=== PATIENT | male | born 1980 | race Caucasian/White ===

== ENCOUNTER → 2016-10-14 | Outpatient (CLI) | payer SELFPAY ==
[~2016-10-14] MED LIST: CEPH-507 PO; HYDR-3875 PO
--- NOTE | 2016-10-14 19:20 | Diagnostic Imaging Report ---
EXAMINATION: Left hand, three views. COMPARISON: None. HISTORY: A 36-year-old male, left hand pain. FINDINGS: There is a displaced obliquely oriented fracture involving the second proximal phalanx. The distal fracture fragment is displaced radially by approximately 4 mm. There is no fracture involvement of the articulating surface. There is no radiopaque foreign body. IMPRESSION: 1. Displaced obliquely oriented fracture of the second proximal phalanx without intra-articular extension. Dictated by: Dictated on workstation # [id number]
== END ==
LOC: RAD 18:23
PROVIDERS: ATTEND Nurse Practitioner Family
DX: S62.611A Displaced fracture of proximal phalanx of left index finger, initial encounter for closed fracture (principal); X58.XXXA Exposure to other specified factors, initial encounter; Y99.8 Other external cause status
CPT/HCPCS: 73130

== ENCOUNTER → 2021-08-28 | Outpatient (CLI) | payer OTHER ==
--- NOTE | 2021-08-28 13:04 | Diagnostic Imaging Report ---
PROCEDURE: US Hepatic (Liver). TECHNIQUE: Multiple real-time grayscale images were obtained over the right upper quadrant in various projections. INDICATION: Alpha 1 antitrypsin deficiency. Liver is upper limits of normal in size at 16.9 cm. The portal vein is patent and shows normal direction of flow. No discrete liver mass is detected. The gallbladder is unremarkable. No gallstones or sludge are seen. There is no wall thickening or biliary duct dilatation. Pancreas unremarkable. Aorta is nonaneurysmal. IVC is patent. Right kidney is without calculi or hydronephrosis. There is no ascites. IMPRESSION: Unremarkable right upper quadrant ultrasound. Dictated by: Dictated on workstation # [id number]
== END ==
PROVIDERS: ATTEND Internal Medicine Critical Care Medicine
DX: E88.01 Alpha-1-antitrypsin deficiency (principal)
CPT/HCPCS: 76705

== ENCOUNTER → 2021-09-28 | Outpatient (CLI) | payer OTHER | LOC: LAB 11:56 | PROVIDERS: ATTEND Internal Medicine Critical Care Medicine | DX: E88.01 Alpha-1-antitrypsin deficiency (principal) | CPT/HCPCS: 36415; 82103 ==

== ENCOUNTER → 2021-10-03 | Outpatient (CLI) | payer OTHER | LOC: LAB 14:00 | DX: E88.01 Alpha-1-antitrypsin deficiency (principal); J45.50 Severe persistent asthma, uncomplicated; Z87.891 Personal history of nicotine dependence | CPT/HCPCS: 36415; 80323 ==

== ENCOUNTER → 2022-10-03 | Outpatient (CLI) | payer OTHER ==
[2022-10-03 13:33] LABS: ALBUMIN 4.1 GM/DL (3.2-4.5)
[2022-10-03 13:35] LABS: TOTAL PROTEIN 6.8 GM/DL (6.4-8.2)
[2022-10-03 13:37] LABS: BILIRUBIN,TOTAL 0.7 MG/DL (0.1-1.0)
[2022-10-03 13:41] LABS: BILIRUBIN,DIRECT 0.3 MG/DL (0.0-0.3); BILIRUBIN,INDIRECT 0.4 MG/DL
== END ==
LOC: LAB 12:52
PROVIDERS: ATTEND Internal Medicine Critical Care Medicine
DX: E88.01 Alpha-1-antitrypsin deficiency (principal)
CPT/HCPCS: 36415; 80076